=== PATIENT | female | born 1985 | race African-American/Black ===

== ENCOUNTER 2019-04-16 13:15 | Outpatient (CLI) | payer MEDICARE, OTHER ==
[~2019-04-16] VITALS: Ht 162.6 cm; Wt 121.4 kg
[2019-04-16 13:32] VITALS: BP 125/86; PULSE 90; RESP 18; Ht 162.6 cm; Wt 121.4 kg
[2019-04-16] MEDS ORDERED: MEPERIDINE 50 MG INJ IM ONE (15:00)
[2019-04-16] MEDS ORDERED: HYDROCODONE/APAP (5/325) TAB PO ONE (15:30)
--- NOTE | 2019-04-16 18:08 | TRIAGE ---
OB Triage Datetime Report Generated by CPN: 04/16/2019 18:07 Datetime: 04/16/2019 17:08 Maternal Assessment Level of Consciousness: Keenly Alert, Responsive DTR's/Clonus: DTRs 2+ Headache: Denies Blurred Vision: No Nausea/Vomiting: Denies RUQ Epigastric Pain: Denies Facial Edema: None Labor Evaluation Frequency: none Monitor Mode: External Quality: Mild Pattern: Normal: <= 5 Contractions in 10 Minutes Resting Tone [place]: Relaxed Heart Rate FHR Baseline Rate: 135 Monitor Mode: External US FHR Baseline Changes: No Baseline Change Variability: Moderate 6-25 bpm Accelerations: 15X15 Decelerations: None Category: Category I Pain Assessment Pain Scale: 4 Pain Presence: Chronic Pain Type: Pressure Pain Location: Left Leg Pain Goal: 3 Datetime: 04/16/2019 16:00 Maternal Assessment Level of Consciousness: Keenly Alert, Responsive DTR's/Clonus: DTRs 2+ Headache: Denies Blurred Vision: No Nausea/Vomiting: Denies RUQ Epigastric Pain: Denies Facial Edema: None Labor Evaluation Frequency: none Pattern: Normal: <= 5 Contractions in 10 Minutes Resting Tone [place]: Relaxed Heart Rate FHR Baseline Rate: 140 Monitor Mode: External US FHR Baseline Changes: No Baseline Change Variability: Moderate 6-25 bpm Accelerations: 15X15 Decelerations: None Category: Category I Pain Assessment Pain Scale: 6 Pain Presence: Chronic Pain Type: Pressure Pain Location: Left Leg Pain Goal: 2 Vaginal Exam Membrane Status: Intact Datetime: 04/16/2019 15:49 FHR Baseline Changes: Return to Previous Baseline Datetime: 04/16/2019 13:54 Stage of : OB Triage Datetime: 04/16/2019 13:28 Stage of : OB Triage Maternal Assessment Level of Consciousness: Keenly Alert, Responsive DTR's/Clonus: DTRs 2+; No Clonus Headache: Denies Blurred Vision: No Respiratory Effort: Unlabored; Regular Rhythm; Equal Expansion Breath Sounds, Left: Clear and Equal Breath Sounds, Right: Clear and Equal Nausea/Vomiting: Denies RUQ Epigastric Pain: Denies Lower Extremities Edema: Bilateral Lower Extremities Degree: 2+ Upper Extremities Edema: None Degree: None Facial Edema: None Temperature Route: Oral Fall Risk Assessment History of Falling: (0) No Secondary Diagnosis: (0) No Ambulatory Aid: (0) Bedrest/Nurse Assist IV Therapy: (0) No Gait: (0) Normal/Bedrest/Immobile Mental Status: (0) Oriented to Own Ability Fall Score: 0 Fall Risk Score Definition: No Risk: No action required Monitor Mode: External Heart Rate FHR Baseline Rate: 140 Monitor Mode: External US Pain Assessment Pain Scale: 9 Pain Presence: Constant Pain Type: Cramping; Dull; Sharp Pain Location: Abdomen; Back; Sacrum Datetime: 04/16/2019 13:27 EGA: 32.1 Datetime: 04/16/2019 13:23 Time of Arrival: 04/16/2019 13:24 Arrived By: Wheelchair Arrived From: Home Chief Complaint: pain, contractions, unable to sleep since 04/06, has been falling while walking Movement: Present Contractions: Irregular Rupture of Membranes: Denies Vaginal Discharge: Denies Recent Sexual Intercouse: Denies Abdominal Trauma: Fall Patient Complaints: Contractions; Cramping; Back Pain Additional Patient Complaints: sent from Dr office for evaluationto rule out fracture or dislocati on and possibly have orthopedic or physical therapy evaluation Time Provider Notified: 04/16/2019 13:45 Provider Notified: Dr Camp Initial Plan: efm/ u/s
--- NOTE | 2019-04-16 21:43 | PN ---
Triage Information Date/Time April 16, 2019 Reason for visit: Patient presented with complaint of contractions as well as pain in the left hip with walking. She reports had a history of musculoskeletal problem and need to use walker to walk. She reports fall episodes. Weeks of Gestation 32 weeks and 1 day /Para 9 para 4 Diabetes: none Hypertention: none Additional information 34-year-old 9 para 4 with IUP at 32 weeks and 1 day with a history of arthritis and joint problem/orthopedic issue in the left hip, with chronic left hip pain that has been managed by pain management she presented to the hospital with complaint of, fall this morning 12 hours prior to present to the hospital. She reports that she did not landed on her abdomen and landed on her side. She reports that she has been using walker for walking around. She lives in the skilled nursing. She had been receiving pain medication for chronic arthritis and joint pain. Reports due to she was not given pain medication. She reports she has trouble falling asleep due to pain. She reports she is not able to move around in her skilled nursing which does not have any hand-held and has a stairs. 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 When she presented complaint of abdominal pain and contractions as well but reported her pain in the hip is so severe that she cannot walk around. Patient denies any leaking of fluid, vaginal bleeding or decreased movement. Patient requested only [employer] for pain control Objective Vital Signs Date Temp Pulse Resp B/P (MAP) Pulse Ox O2 O2 Flow FiO2 Time Delivery Rate 04/16/19 98.0 90 18 125/86 13:32 (99) Heart Rate: 130's Heart Rate Comments Category 1 and appropriate for gestational age Contractions: 6-10 Minutes Apart Exam Appearance: She is morbidly obese, when I saw the patient was not at all in any acute distress and that was after she received a [employer]. Abdomen: Soft, gravid, fundal height appears to correlate with gestational age Patient could move her extremities without any limitation as well as her left hip which she explained that she has trouble putting her weight on. She refused to ambulate or get out of the bed. BPP: 06/09 Results/Medications Results 24 hrs Laboratory Tests Test 04/16/19 14:00 Urine Color YELLOW Urine Clarity SLIGHTLY CLOUDY A Urine pH 6.0 Urine Specific [place] 1.026 Urine Ketones TRACE A Urine Nitrite NEGATIVE Urine Bilirubin NEGATIVE Urine Urobilinogen 2+ H Urine Leukocyte Esterase NEGATIVE Urine Microscopic RBC 2 Urine Microscopic WBC 1 Urine Squamous Epithelial Cells FEW Urine Bacteria FEW A Urine Mucus FEW A Urine Hemoglobin NEGATIVE Urine Glucose NEGATIVE Urine Total Protein NEGATIVE Imaging Results PROCEDURE: CERVICAL LENGTH ULTRASOUND CLINICAL INDICATION: Contractions. TECHNIQUE: Trans-vaginal imaging of the cervical canal was performed utilizing hennessy-scale imaging. Sagittal and transverse images were obtained. Trans- abdominal images were also obtained. The images were reviewed on a PACS workstation. COMPARISON: None. FINDINGS: The cervix is closed with a length of 3.8 cm. There is a single live intrauterine . heart rate is 150 beats per minute. Position is cephalic and placenta is anterior, grade 2. There is no placenta previa. IMPRESSION: 1. Cervical length measures 3.8 cm. RPTAT: .Matt Alvarenga MD, Date Time PROCEDURE: US biophysical profile. CLINICAL INDICATION: Contractions. well-being. TECHNIQUE: Multiple sonographic images of the uterus were obtained. The images were reviewed on a PACS workstation. COMPARISON: No prior studies are available for comparison. FINDINGS: There is a single live intrauterine gestation. heart rate is 142 beats per minute. The position is cephalic. The placenta is anterior, grade II. The OLIMPIA is 16.5 cm. Breathing Movement: 2 Gross Body Movement: 2 Tone: 2 Qualitative Amniotic Fluid Volume: 2 TOTAL: 8 IMPRESSION: 1. Single viable intrauterine gestation. 2. Biophysical profile = 8. 3. OLIMPIA = 16.5 cm. RPTAT: .Matt Alvarenga MD, PROCEDURE: Bilateral lower extremity venous ultrasound. CLINICAL INDICATION: Pain and swelling TECHNIQUE: Multiple sonographic images of both lower extremity deep venous systems was obtained utilizing grayscale, color-flow, compressive sonography and doppler imaging with augmentation. The images were reviewed on a PACS workstation. COMPARISON: None. FINDINGS: The deep venous structures of the right lower extremity show good compressibility, spontaneous flow variability, and augmentation of forward flow on distal compression. The venous structures of the left lower extremity show good compressibility, spontaneous flow variability, and augmentation of forward flow on distal compression. No coincidental abnormalities were identified. IMPRESSION: 1. No sonographic evidence for deep venous thrombosis in either lower extremity. RPTAT:AAJJ Physician Inocencia Date Time Electronically viewed and signed by Physician Inocencia on 04/16/2019 17:16 Disposition: Discharge Assessment/Plan IUP at 32 weeks and 1 day No evidence of PPROM or labor No acute OB problem No evidence of abruption Per patient fall occurred more than 12 hours ago Patient does not have any clinical evidence of abruption Did not landed on her abdomen directly Chronic joint pain, with trouble walking Patient received a dose of [employer] and she felt comfortable. She denies any abdominal pain and did not feel any contraction. She will be discharged to emergency room for evaluation of her joint pain. labor precautions kick count discussed Questionable drug-seeking behavior due to choice of narcotic that she is requesting Patient verbalized understanding she transferred to ED for evaluation YEYO ARSHAD MD Apr 16, 2019 21:43
== END 2019-04-16 18:20 | disposition home or self-care (01) ==
LOC: OBT 13:15 → L-D 13:15 → OBT 18:20
PROVIDERS: ATTEND Specialist
DX: O62.9 Abnormality of forces of labor, unspecified (principal); O26.893 Other specified pregnancy related conditions, third trimester; M19.90 Unspecified osteoarthritis, unspecified site; O09.523 Supervision of elderly multigravida, third trimester
CPT/HCPCS: 76817; 76818; 81001; 81003; 93970; G0463

== ENCOUNTER 2019-04-16 18:17 | Emergency (ER) | payer MEDICARE, OTHER ==
[~2019-04-16] VITALS: Ht 162.6 cm; Wt 121.0 kg
[2019-04-16 18:25] VITALS: BP 116/66; PULSE 62; RESP 19; Ht 162.6 cm; Wt 121.0 kg
--- NOTE | 2019-04-16 18:49 | ERD ---
ER Documentation Chief Complaint Chief Complaint STATES FREQUENT FALLS, +PELVIC PAIN, LT LEG PAIN, NOT SLEEPING HPI Patient is a 34-year-old female who presents for leg pain and falls. She was seen by OB and was cleared from an OB standpoint as she is 32 weeks . She said that she was sent to the ER for pain. She reports that she has had falls and she does have a walker that she has been using. Upon review of old medical records this is the patient's first visit to the emergency department. However review of the emergency department information exchange system shows visits to 5 separate emergency departments for a total of 12 visits over the past 1 year. She says that her OB doctor is Dr. Pool. ROS All systems reviewed and are negative except as per history of present illness. Allergies Allergies: Coded Allergies: morphine (Verified Adverse Reaction, Intermediate, 04/16/19) hives PMhx/Soc Medical and Surgical Hx: pt denies Medical Hx FmHx Family History: No diabetes Physical Exam Vitals Vital Signs Date Temp Pulse Resp B/P (MAP) Pulse Ox O2 O2 Flow FiO2 Time Delivery Rate 04/16/19 98.3 62 19 116/66 96 18:25 (83) Physical Exam Const: No acute distress Head: Atraumatic Eyes: Normal Conjunctiva ENT: Normal External Ears, Nose and Mouth. Neck: Full range of motion. No meningismus. Resp: Clear to auscultation bilaterally Cardio: Regular rate and rhythm, no murmurs Abd: Soft, 32-week abdomen Skin: No petechiae or rashes Back: No midline or flank tenderness Ext: No cyanosis, or edema Neur: Awake and alert Procedures/MDM Patient is a 34-year-old female presents with left leg pain and falls. She is requesting pain medicine and sleep medicine. I told her that both of these medicines would not be good for her with a 32-week fetus and that I would not be prescribing these medications. She was not happy but I told her that this would not be good for her fetus. I do not believe that she requires further work-up or imaging studies in the emergency department. Outpatient imaging studies may be considered such as MRI but I do believe that most likely she would improve after delivery of the baby. This may be related to the position of the baby on the lumbar nerves. There also may be an element of pain seeking behavior based on the emergency department information exchange report showing multiple visits to various emergency departments. Departure Diagnosis: Primary Impression: Pain Condition: Fair Patient Instructions: Possible Causes of Low Back or Leg Pain Referrals: Your OB doctor Dr. Pool Additional Instructions: SPECIALIST: YOU HAVE A MEDICAL CONDITION WHICH REQUIRES YOU TO SEE A SPECIALIST WITHIN THE NEXT 1-2 DAYS. PLEASE FOLLOW UP WITH YOUR PRIMARY PHYSIC GM FOR REFFERAL.IF YOU DO NOT HAVE A PRIMARY CARE PHYSICIAN AND/OR YOU CAN NOT AFFORD TO SEE A PHYSICIAN THE FOLLOWING RESOURCES HAVE BEEN SUPPLIED TO YOU. IT IS YOUR RESPONSIBILITY TO BE SEEN BY THE SPECIALIST ROSETTA BURCIAGA MD Apr 16, 2019 18:49
== END 2019-04-16 19:00 | disposition home or self-care (01) ==
LOC: E/R 18:17
DX: O26.893 Other specified pregnancy related conditions, third trimester (principal); R10.2 Pelvic and perineal pain; O99.89 Other specified diseases and conditions complicating pregnancy, childbirth and the puerperium; M79.605 Pain in left leg; Z3A.32 32 weeks gestation of pregnancy
CPT/HCPCS: 99282

== ENCOUNTER 2019-05-14 18:38 | Outpatient (CLI) | payer MEDICARE, OTHER ==
[~2019-05-14] VITALS: Ht 165.1 cm; Wt 127.0 kg
[2019-05-14 18:44] VITALS: BP 120/70; PULSE 104; RESP 18; Ht 165.1 cm; Wt 127.0 kg
[2019-05-14] MEDS ORDERED: PREN-93 PO (18:48)
[2019-05-14] MEDS ORDERED: ACETAMINOPHEN 500 MG TAB PO STA (20:24)
--- NOTE | 2019-05-14 21:47 | TRIAGE ---
OB Triage Datetime Report Generated by CPN: 05/14/2019 21:47 Datetime: 05/14/2019 21:17 Labor Evaluation Frequency: X1 Monitor Mode: External Duration (sec)2399: 40 Quality: Mild Pattern: Normal: <= 5 Contractions in [address] [place]: Relaxed Heart Rate FHR Baseline Rate: 130 Monitor Mode: External US Variability: Moderate 6-25 bpm Accelerations: 15X15 Comments: LOSS OF CONTACT, EFM ADJUSTED Datetime: 05/14/2019 21:10 Pain Assessment Pain Scale: 5 Pain Presence: Constant Pain Type: Ache Pain Location: Abdomen; Back Pain Goal: 0 Pain Relief Measures: STATES UCS RESOLVED BUT FEELS CONSTANT PAIN/PRESSURE IN HER LOWER BACK 5/10 S [place] SHE FELL LAST MONTH. REPOSITIONED WITH PILLOWS FOR COMFORT Datetime: 05/14/2019 20:32 Comments: MULTIPLE ADJUSTMENTS MADE TO EFM, DIFFICULT TO MAINTAIN CONTINUOUS TRACING DUE TO FREQUEN T MOVEMENT. U/S TECH AT BEDSIDE, WILL ADJUST AFTER. PT NOW STATES SHE WILL ACCEPT TYLENOL Datetime: 05/14/2019 20:30 Labor Evaluation Frequency: x4 Monitor Mode: External Duration (sec)2399: 30-90 Quality: Mild Pattern: Normal: <= 5 Contractions in [address] [place]: Relaxed Heart Rate FHR Baseline Rate: 135 Monitor Mode: External US Variability: Moderate 6-25 bpm Accelerations: 15X15 Decelerations: Variable Category: Category II Datetime: 05/14/2019 19:30 Labor Evaluation Frequency: X1 Monitor Mode: External Duration (sec)2399: 100 Quality: Mild Pattern: Normal: <= 5 Contractions in [address] [place]: Relaxed Heart Rate FHR Baseline Rate: 135 Monitor Mode: External US Variability: Moderate 6-25 bpm Accelerations: 15X15 Decelerations: None Category: Category I Datetime: 05/14/2019 19:10 Assessment Type: Triage Maternal Assessment Level of Consciousness: Keenly Alert, Responsive DTR's/Clonus: DTRs 2+; No Clonus Headache: Denies Blurred Vision: No Respiratory Effort: Unlabored; Regular Rhythm; Equal Expansion Nausea/Vomiting: Denies RUQ Epigastric Pain: Denies Lower Extremities Edema: Bilateral Lower Extremities Degree: 1+ Upper Extremities Edema: None Degree: None Facial Edema: None Fall Risk Assessment History of Falling: (0) No Secondary Diagnosis: (0) No Ambulatory Aid: (0) Bedrest/Nurse Assist IV Therapy: (0) No Gait: (0) Normal/Bedrest/Immobile Mental Status: (0) Oriented to Own Ability Fall Score: 0 Fall Risk Score Definition: No Risk: No action required Comment: ASSUMED CARE OF PT Datetime: 05/14/2019 19:07 Time of Arrival: 05/14/2019 18:15 EGA: 36.1 Arrived By: Ambulatory Arrived From: Home Chief Complaint: ABD PAIN Movement: Present Contractions: Irregular Time Contractions Began: 05/14/2019 15:00 Contractions: 15-20 MIN Rupture of Membranes: Denies Vaginal Bleeding: None Vaginal Discharge: Denies Recent Sexual Intercouse: Denies Abdominal Trauma: Not Applicable Patient Complaints: Contractions Time Provider Notified: 05/14/2019 19:25 Provider Notified: LULU Initial Plan: NST, CALL MD FOR ORDERS Datetime: 05/14/2019 18:48 Maternal Assessment Level of Consciousness: Keenly Alert, Responsive DTR's/Clonus: DTRs 2+; No Clonus Headache: Denies Blurred Vision: No Respiratory Effort: Unlabored; Regular Rhythm; Equal Expansion Breath Sounds, Left: Clear and Equal Breath Sounds, Right: Clear and Equal Nausea/Vomiting: Denies RUQ Epigastric Pain: Denies Facial Edema: None Temperature Route: Axillary Fall Risk Assessment History of Falling: (0) No Secondary Diagnosis: (0) No Ambulatory Aid: (0) Bedrest/Nurse Assist IV Therapy: (0) No Gait: (0) Normal/Bedrest/Immobile Mental Status: (0) Oriented to Own Ability Fall Score: 0 Fall Risk Score Definition: No Risk: No action required Datetime: 05/14/2019 18:42 Maternal Assessment Level of Consciousness: Keenly Alert, Responsive DTR's/Clonus: DTRs 2+ Headache: Denies Blurred Vision: No Nausea/Vomiting: Denies RUQ Epigastric Pain: Denies Facial Edema: None Labor Evaluation Frequency: NONE Pattern: Normal: <= 5 Contractions in [address] [place]: Relaxed Heart Rate FHR Baseline Rate: 150 Monitor Mode: External US FHR Baseline Changes: No Baseline Change Variability: Moderate 6-25 bpm Accelerations: 15X15 Decelerations: None Category: Category I Pain Assessment Pain Scale: 6 Pain Presence: Intermittent Pain Type: Contraction Pain Location: Abdomen Pain Goal: 2 Vaginal Exam Membrane Status: Intact Datetime: 04/16/2019 18:03 Time of Arrival: 05/14/2019 18:15 EGA: 36.1 Arrived By: Ambulatory Arrived From: Home Chief Complaint: ABD PAIN Movement: Present Time Contractions Began: 05/14/2019 15:00 Rupture of Membranes: Denies Vaginal Bleeding: None Vaginal Discharge: Denies Recent Sexual Intercouse: Denies Abdominal Trauma: Not Applicable Patient Complaints: Contractions Provider Notified: DR DUQUE Initial Plan: EFM,CALL DR DUQUE Datetime: 04/16/2019 13:28 Fall Score: 0 Fall Risk Score Definition: No Risk: No action required Datetime: 04/16/2019 13:27 EGA: 32.1
--- NOTE | 2019-05-14 23:07 | PN ---
Triage Information Date/Time 05/14/19 Reason for visit: Abd/pelvic pain Weeks of Gestation 36w1d /Para A4 NSVDx1 C/S for oligohydramnios f/b x2 more c/s Diabetes: none Hypertention: none Additional information left knee meniscus tear multiple fall by using walker 04/06,04/12, and x2 more fall living in [facility] after lost job , kids are all scattered, has to use walker to go up stairs Objective Vital Signs Date Temp Pulse Resp B/P (MAP) Pulse Ox O2 O2 Flow FiO2 Time Delivery Rate 05/14/19 97.8 104 18 120/70 Room Air 18:44 (87) Heart Rate: 150's Heart Rate Comments CAT I Exam abdomen soft no uc for manual palpation for 15min Results/Medications Results 24 hrs Laboratory Tests Test 05/14/19 18:20 Urine Color YELLOW Urine Clarity CLEAR Urine pH 6.0 Urine Specific [place] 1.018 Urine Ketones NEGATIVE Urine Nitrite NEGATIVE Urine Bilirubin NEGATIVE Urine Urobilinogen NEGATIVE Urine Leukocyte Esterase NEGATIVE Urine Hemoglobin NEGATIVE Urine Glucose NEGATIVE Urine Total Protein NEGATIVE Medications tylenol 1000mg Imaging Results BPP 8/8 OLIMPIA 14.3 Vx Disposition: Discharge Assessment/Plan A IUP 36w1d S/P X3 c/s ligament pain NIL P discharge home f/u with her OB RTH prn with routine labor instructions JAYCE LAWSON MD May 14, 2019 23:07
== END 2019-05-14 21:35 | disposition home or self-care (01) ==
LOC: OBT 18:38 → L-D 18:40 → OBT 21:35
PROVIDERS: ATTEND Specialist
DX: O26.893 Other specified pregnancy related conditions, third trimester (principal); M25.562 Pain in left knee; O41.03X0 Oligohydramnios, third trimester, not applicable or unspecified; O34.219 Maternal care for unspecified type scar from previous cesarean delivery; O09.523 Supervision of elderly multigravida, third trimester; Z3A.36 36 weeks gestation of pregnancy
CPT/HCPCS: 76818; 81003; 87086; G0463

== ENCOUNTER 2019-05-18 20:36 | Inpatient (IN) | payer MEDICARE, OTHER ==
[~2019-05-18] VITALS: Ht 162.6 cm; Wt 125.7 kg
[~2019-05-18 20:36] MED LIST: PREN-93 PO
[2019-05-18 23:02] VITALS: Ht 162.6 cm; Wt 125.7 kg
[2019-05-18 23:05] VITALS: BP 93/70; PULSE 88; RESP 18
[2019-05-19] MEDS: HYDROCODONE/APAP (10/325) TAB PO PRN ×2 (01:41→06:16)
--- NOTE | 2019-05-19 02:47 | TRIAGE ---
OB Triage Datetime Report Generated by CPN: 05/19/2019 02:46 Datetime: 05/19/2019 01:40 Pain Assessment Pain Scale: 8 Pain Presence: Constant Pain Type: Ache Pain Location: Head Pain Goal: 5 Datetime: 05/18/2019 23:09 Time of Arrival: 05/18/2019 20:23 EGA: 36.5 Arrived By: Wheelchair Arrived From: Home Movement: Present Contractions: Denies/Absent Rupture of Membranes: Denies Vaginal Bleeding: None Vaginal Discharge: Denies Recent Sexual Intercouse: Denies Abdominal Trauma: Not Applicable Patient Complaints: Contractions Time Provider Notified: 05/19/2019 21:00 Provider Notified: YASHARPOUR Initial Plan: EFM, VE, LABS, ULTRASOUND Datetime: 05/14/2019 19:10 Fall Risk Assessment Fall Score: 0 Fall Risk Score Definition: No Risk: No action required Datetime: 05/14/2019 19:07 EGA: 36.1 Datetime: 05/14/2019 18:48 Fall Risk Assessment Fall Score: 0 Fall Risk Score Definition: No Risk: No action required Datetime: 04/16/2019 18:03 EGA: 36.1 Datetime: 04/16/2019 13:28 Fall Risk Assessment Fall Score: 0 Fall Risk Score Definition: No Risk: No action required Datetime: 04/16/2019 13:27 EGA: 32.1
[2019-05-19] MEDS ORDERED: LACTATED RINGER'S 1,000 ML IV SCH (02:55)
[2019-05-19] MEDS ORDERED: HYDROCODONE/APAP (10/325) TAB PO PRN (03:00)
--- NOTE | 2019-05-19 04:20 | TRIAGE ---
OB Triage Datetime Report Generated by CPN: 05/19/2019 04:20 Datetime: 05/19/2019 03:00 Comments: TURNED OFF, NEW ORDER FOR NST Q SHIFT ONLY Datetime: 05/19/2019 02:46 EGA: 36.5 Datetime: 05/19/2019 02:20 Frequency: 0 Monitor Mode: External Resting Tone [place]: Relaxed FHR Baseline Rate: 130 Monitor Mode: External US Variability: Moderate 6-25 bpm Accelerations: 15X15 Decelerations: None Category: Category I Datetime: 05/19/2019 01:20 Frequency: 0 Monitor Mode: External Resting Tone [place]: Relaxed FHR Baseline Rate: 130 Monitor Mode: External US Variability: Moderate 6-25 bpm Accelerations: 15X15 Decelerations: None Datetime: 05/19/2019 00:20 Frequency: 0 Monitor Mode: External Resting Tone [place]: Relaxed Comments: POOR TRACING Datetime: 05/18/2019 23:20 Frequency: 0 Monitor Mode: External Resting Tone [place]: Relaxed FHR Baseline Rate: 140 Monitor Mode: External US Variability: Moderate 6-25 bpm Accelerations: 15X15 Comments: LOSS OF CONTACT, PT LAYING ON LEFT SIDE, EFM ADJUSTED Datetime: 05/18/2019 23:09 EGA: 36.5 Datetime: 05/18/2019 22:42 Assessment Type: Triage Level of Consciousness: Keenly Alert, Responsive DTR's/Clonus: DTRs 2+; No Clonus Headache: Denies Blurred Vision: No Respiratory Effort: Unlabored; Regular Rhythm; Equal Expansion Breath Sounds, Left: Clear and Equal Breath Sounds, Right: Clear and Equal Nausea/Vomiting: Denies RUQ Epigastric Pain: Denies Facial Edema: None History of Falling: (0) No Secondary Diagnosis: (0) No Ambulatory Aid: (0) Bedrest/Nurse Assist IV Therapy: (0) No Gait: (0) Normal/Bedrest/Immobile Mental Status: (0) Oriented to Own Ability Fall Score: 0 Fall Risk Score Definition: No Risk: No action required Pain Scale: 8 Pain Presence: Constant Pain Type: Ache Pain Location: Head Pain Goal: 5
[2019-05-19] MEDS ORDERED: PRENATAL VITAMIN PO SCH (09:00)
--- NOTE | 2019-05-19 09:45 | HP ---
Date/Time of Note Date/Time of Note DATE: 05/19/19 TIME: 09:39 OB - History Hx of Present Free Text/Dictation 05/19/2019 : 9 Para: 4 Other Concerns: 34-year-old G9, P4 with IUP at 37 weeks and 5 days and care with Dr. joanna berg at [facility], was sent to the hospital for rule out PIH due to 3 days headache as well as blurred vision and elevated blood pressure in the range of 140s over 90s. Patient denies any history of migraine headache. She reports photophobia. Patient reports has pressure feeling sensation behind her eyes. She denies any history of sinus headache. She denies any congestion. Patient denies any leaking of fluid, vaginal bleeding decreased movement or contractions. Patient reports nonstop having headache for the last 3 days with blurry vision. She denies any epigastric pain or right upper quadrant pain. Patient reports has been taking Tylenol and it does not help with her he adache. records reviewed. Elevated blood pressure in the range of 140s over 90sx2 noted. Patient's blood pressure during monitoring in triage within normal limits. PIH panels were normal. She continued to have headache and blurred vision. She was given Dola per her request since reported that Tylenol does not help with her headache. Her headache moderately improved however was a st ill symptomatic. Patient was admitted to labor and delivery for monitoring blood pressure closely. Past Family/Social History * Past Medical, Surgical, Family and Obstetric Histories reviewed from chart. OB Admission Exam Vital Signs Vital Signs Vital Signs Date Temp Pulse Resp B/P (MAP) Pulse Ox O2 O2 Flow FiO2 Time Delivery Rate 05/18/19 98.0 88 18 93/70 (78) Room Air 23:05 Physical Exam HEENT: WNL Heart: Rhythm Normal Lungs: Clear Abdomen: WNL Cervical Dilatation: None Effacement: 0% Heart Rate: 130's Accelerations: Accelerations Present Decelerations: No Decelerations Contractions on Admission: >10 Minutes Apart Intensity: Mild Last 72 hourBlood Glucose PROCEDURE: OB ultrasound for biophysical profile CLINICAL INDICATION: , pain. TECHNIQUE: Multiple sonographic images of the pelvis were obtained. Transabdominal view of the gravid uterus are available for review. The images were reviewed on a PACS workstation. COMPARISON: 05/14/2019 FINDINGS: breathing movement = 2/2 tone = 2/2 motion = 2/2 Amniotic fluid = 2/2 OLIMPIA = 14.8 cm Single live intrauterine in cephalic presentation with cardiac activity (144 bpm). Anterior placenta, grade 1-2. IMPRESSION: Single live intrauterine gestation. Biophysical profile = 06/09. OLIMPIA = 14.8 cm. RPTAT: HTAR Last 72 hours Lab Results CBC & BMP 05/18/19 23:07 Liver Function Test 05/18/19 23:07 Alanine Aminotransferase (ALT/SGPT) 10 L Albumin 3.3 Alkaline Phosphatase 131 H Aspartate Amino Transf (AST/SGOT) 18 Direct Bilirubin 0.00 Total Protein 6.8 OB Assessment/Plan Other Assessment: IUP at 37 weeks and 5 days Headache, blurred vision. Photophobia. . PIH panels are normal. Blood pressure during monitoring normal. Patient will be admitted to labor and delivery for close monitoring and observation She received Dola that moderately improved headache however still continued to be symptomatic. Labs are normal blood pressures during observation within normal limits. We will closely monitor the blood pressures in the symptoms if any evidence of elevated blood pressure, consider delivery Histroy of Prior C/S x 3. Plan for repeat C/S Plan of care discussed with patient and RN. I covered for this patient overnight when arrived,. Dr Hameed took over the care in am and assessed the patient, Patient asymptomatic now, Plan for Delivery via section in am YEYO ARSHAD MD May 19, 2019 09:44
--- NOTE | 2019-05-19 10:30 | QN ---
Documentation Comment I spoke to patient while ore charger in the room earlier today. I explained the situation and we all agreed to proceed with R C/S and BTL in am when she becomes 37 weeks. we all agreed that she will stay in hospital until then. Later on patient was dressed and decided to go home. she lives in a hotel and has social issues. I do not feel comfortable to discharge the patient. I explained the risks of PIH including maternal and . she signed out AM THOMAS WALKER MD May 19, 2019 10:30
== END 2019-05-19 10:17 | disposition left against medical advice (07) | DRG 833 ==
LOC: OBT 20:36 → L-D 20:38 → OBT 05-19 02:35 → L-D 05-19 02:35
PROVIDERS: ADMIT Specialist; ATTEND Specialist
DX: O13.3 Gestational [pregnancy-induced] hypertension without significant proteinuria, third trimester (principal); Z3A.37 37 weeks gestation of pregnancy; Z60.8 Other problems related to social environment
CPT/HCPCS: 76818; 80053; 81001; 81003; 84560; 85025; 85384; 85610; 85730; G0463; J7120

== ENCOUNTER 2019-05-19 14:22 | Inpatient (IN) | payer MEDICARE, OTHER ==
[~2019-05-19] VITALS: Ht 162.6 cm; Wt 125.7 kg
[2019-05-19 16:47] VITALS: Ht 162.6 cm; Wt 125.7 kg
[2019-05-19 16:49] VITALS: BP 156/79; PULSE 86; RESP 20
[2019-05-19] MEDS: LACTATED RINGER'S 1,000 ML IV SCH (19:00)
[2019-05-20] MEDS: LACTATED RINGER'S 1,000 ML IV SCH (00:54)
[2019-05-20] MEDS ORDERED: LACTATED RINGER'S 1,000 ML IV SCH ×2 (04:49→07:57)
[2019-05-20] MEDS ORDERED: CARBOPROST 250 MCG INJ IM PRN (05:00)
[2019-05-20] MEDS ORDERED: OXYTOCIN 30 UNITS/LR 500 ML IV PRN (05:00)
[2019-05-20] MEDS ORDERED: MISOPROSTOL 200 MCG TAB PR PRN ×2 (05:00→08:00)
[2019-05-20] MEDS ORDERED: CEFAZOLIN 3 GM in DEXTROSE 5% 100 ML IV ONE (05:00)
[2019-05-20] MEDS ORDERED: METHYLERGONOVINE 0.2 MG INJ IM PRN (05:00)
[2019-05-20] MEDS ORDERED: CEFAZOLIN 2 GM/50 ML (PMX) 50 ML IVPB ONE (05:30)
[2019-05-20] MEDS ORDERED: morphine SULFATE/PF (10 MG/10 ML) INJ ONE (07:19)
[2019-05-20] MEDS ORDERED: ONDANSETRON 4 MG INJ ONE (07:19)
[2019-05-20] MEDS ORDERED: METOCLOPRAMIDE 10 MG INJ ONE (07:19)
[2019-05-20] MEDS ORDERED: KETOROLAC 30 MG INJ ONE (07:19)
--- NOTE | 2019-05-20 07:32 | PREAC ---
Date/Time of Note Date/Time of Note DATE: 05/20/19 TIME: 07:30 Anesthesia Eval and Record Evaluation Time Pre-Procedure Interview DATE: 05/20/19 TIME: 07:30 Age 34 Sex female NPO: 8 hrs Preoperative diagnosis repeat c section Planned procedure c section BTL Past Medical History Past Medical History: Includes GI: Morbid obesity Surgery & Anesthesia Issues No known issue Meds Anticoagulation: No Beta Talat within 24 hr: No Reason Beta Talat not given: Pt. not on B-Talat Reported Medications Vit No.124/Iron/FA ( Vitamin Tablet) 1 Each Tablet, 1 EACH PO, TAB 05/14/19 Current Medications Lactated Ringer's 1,000 ml @ 125 mls/hr Q8H IV ; Start 05/19/19 at 16:54 Lactated Ringer's 1,000 ml @ 125 mls/hr Q8H IV ; Start 05/20/19 at 04:49 Oxytocin/Lactated Ringer's 500 ml @ 125 mls/hr POST IV ; Start 05/20/19 at 05:00 Oxytocin/Lactated Ringer's 500 ml @ 0 mls/hr ONCE PRN IV .VAGINAL BLEEDING; Start 05/20/19 at 05:00 Methylergonovine Maleate (Methergine) 0.2 mg ONCE PRN IM .VAGINAL BLEEDING; Start 05/20/19 at 05:00 Carboprost Tromethamine (Hemabate) 250 mcg ONCE PRN IM .VAGINAL BLEEDING; Start 05/20/19 at 05:00 Misoprostol (Cytotec) 1,000 mcg ONCE PRN AR .VAGINAL BLEEDING; Start 05/20/19 at 05:00 Meds reviewed: Yes Allergies Coded Allergies: morphine (Verified Adverse Reaction, Intermediate, 05/18/19) hives Allergies Reviewed: Yes Labs/Studies Labs Reviewed: Reviewed by anesthesiologist Blood Bank Test 05/19/19 17:21 Antibody Screen NEGATIVE Blood Type O POSITIVE test: Positive Studies: ECG (n/a), CXR (n/a) Pre-procedure Exam Last vitals Vital Signs Date Temp Pulse Resp B/P (MAP) Pulse Ox O2 O2 Flow FiO2 Time Delivery Rate 05/19/19 98.2 86 20 156/79 Room Air 16:49 (104) Airway: Adequate mouth opening Mallampati: Mallampati I Teeth: Normal Lung: Normal Heart: Normal ASA Physical Status ASA physical status: 3 Emergency: None Planned Anesthetic General/MAC: ETT Neuraxial: Spinal Planned Pain Management Sub-arachniod narcotics Pre-operative Attestations Prior to commencing anesthesia and surgery, the patient was re-evaluated, there was verification of: *The patient's identity *The results of appropriate recent lab work and preoperative vital signs *The above evaluation not changing prior to induction *Anesthetic plan, risk benefits, alternative and complications discussed with patient/family; questions answered; patient/family understands, accepts and wishes to proceed. EVIE MALLORY MD May 20, 2019 07:32
[2019-05-20] MEDS ORDERED: DIPHENHYDRAMINE 50 MG INJ ONE (07:48)
--- NOTE | 2019-05-20 07:55 | HP ---
Date/Time of Note Date/Time of Note DATE: 05/20/19 TIME: 07:51 OB - History Hx of Present Free Text/Dictation 34-year-old 9 para 4 4 with due date of June 10, 2019 with at 37 weeks she is referred by an [facility] clinic due to elevated blood pressure. She reports intermittent headaches and visual changes. She denies right upper quadrant pain. Her PIH labs are normal. She has labile blood press ures. Most of her blood pressures are normal. She has some blood pressures in 140s. She desires to have repeat delivery and Permanent sterilization. I discussed with the patient the risks, benefits, indications, and alternatives of procedure including but not limited to risks of infection, bleeding, damage to other organs, bowel, bladder, hernia formation, scar formation, possibility of blood transfusion, possible need for emergency hysterectomy, as well as the fact that tubal ligation may fail and there is 1 to 2% risk of failure over lifetime of tubal ligations and the fact that tubal ligation is permanent and irreversible. She was allowed to ask questions. All her questions were answered. Informed consent has been obtained. Care: Good Care Ultrasounds: Normal mid trimester US Obstetrical Complications: Pre-eclampsia Medical Complications: Psychiatric, Other (Schizophrenia) Past Family/Social History * Past Medical, Surgical, Family and Obstetric Histories reviewed from chart. OB Admission Exam Vital Signs Vital Signs Vital Signs Date Temp Pulse Resp B/P (MAP) Pulse Ox O2 O2 Flow FiO2 Time Delivery Rate 05/19/19 98.2 86 20 156/79 Room Air 16:49 (104) Physical Exam HEENT: WNL Heart: Rhythm Normal Lungs: Clear, Equal Abdomen: WNL Extremities: Normal Reflexes: Normal OB Assessment/Plan Other Assessment: at 37 weeks. History of previous delivery. Desires repeat delivery. These are his permanent sterilization. Obesity. Preeclampsia. Other plan: Repeat delivery. Bilateral salpingectomies. THOMAS JEREZ MD May 20, 2019 07:55
[2019-05-20] MEDS ORDERED: NA PHOSPHATE/BIPHOS 133 ML ENEMA PR PRN (08:00)
[2019-05-20] MEDS ORDERED: CITRIC ACID/NA CITRATE 30 ML CUP PO ONE (08:00)
[2019-05-20] MEDS ORDERED: EPHEDrine 25 MG/5 ML SYG ONE (08:11)
--- NOTE | 2019-05-20 08:58 | OPR ---
Date/Time of Note Date/Time of Note DATE: 05/20/19 TIME: 08:55 Operative Report Procedure Date: May 20, 2019 Preoperative Diagnosis at 37 weeks History of previous delivery Desires repeat delivery Desires permanent sterilization Preeclampsia Obesity Postoperative Diagnosis Same Operation/Procedure Performed Repeat delivery Bilateral salpingectomies Surgeon Karina Hameed MD Anthropology Professor Jael Villa MD Anesthesia Type: spinal Estimated Blood Loss: other (700 mL) Transfusion none Specimen Segments of both tubes Grafts/Implants none Tubes/Drains Clement catheter Complications none Pt Condition Post Procedure: stable Disposition: PACU Procedure Description DATE OF OPERATION: The risks, benefits, indications, alternatives of procedure including, but not limited to risk of infection, bleeding, damage to other organs, bowel, bladder, hernia formation, scar formation, possibility of blood transfusions, the risks of tubal ligation such as failure and future pregnancies were discussed with the patient. The fact that BTL is permanent and irreversible also discussed with patient. She was allowed to ask questions. All her questions were answered. Informed consent was obtained. DESCRIPTION OF PROCEDURE: She was taken to the operating room. Spinal anesthesia was induced. She was prepped and draped in the usual sterile fashion. Surgical time out one. Anesthesia was tested to be adequate. With permission from anesthesiologist, a knife was used to make a Pfannenstiel skin incision. The incision was taken down in layers. The fascia was cut, undermined and from the underlying muscle using sharp and blunt dissection. All the bleeders were cauterized. Peritoneum was entered bluntly. A low transverse incision was developed over the uterus. Amniotic fluid was clear and adequate. A viable infant in vertex presentation was delivered without any difficulty. The cord was clamped and cut, handed to awaiting team. Placenta was then delivered. Uterus was exteriorized, wrapped around a moist lap. Inside uterus was cleaned using a dry lap. All residual membranes were removed. The uterine incision was then closed using #1 Monocryl in 2 layers. A 5 cm distal end of the right tube was ligated 3 times using 0 plain tie and the ligated portion was cut, sent to pathology. Same procedure was done on the contralateral side. The uterus was inserted back inside the abdominal cavity. Irrigation was done carefully. Careful evaluation of the uterine incision revealed no further bleeding. The tubal ligation sites were evaluated carefully. There was no bleeding. The peritoneum and rectus muscles and fascia were evaluated. All bleeders cauterized. Peritoneum was closed using 2-0 Monocryl. At this time, the count was correct. Rectus muscle was reapproximated using 2-0 Monocryl. Rectus fascia was closed using #1 Vicryl. Subcutaneous tissue was cleaned and irrigated. All bleeders cauterized and the skin closed using 4-0 Monocryl. All counts correct. KARINA HAMEED MD May 20, 2019 08:58
[2019-05-20] MEDS ORDERED: HYDROmorphONE 1 MG/5 ML IV SYRINGE IV PRN ×3 (09:00)
[2019-05-20] MEDS ORDERED: KETOROLAC 30 MG INJ IV PRN (09:00)
[2019-05-20] MEDS ORDERED: NALOXONE (0.4 MG/ML) INJ IV PRN (09:00)
[2019-05-20] MEDS ORDERED: HYDROmorphONE 0.5 MG/0.5 ML SYG IV PRN ×2 (09:00)
[2019-05-20] MEDS ORDERED: HYDROmorphONE 1 MG/ML SYG IV PRN (09:00)
[2019-05-20] MEDS ORDERED: FENTAnyl 50 MCG/ML VIAL IV PRN ×3 (09:00)
[2019-05-20] MEDS ORDERED: DIPHENHYDRAMINE 50 MG INJ IV PRN ×2 (09:00)
[2019-05-20] MEDS ORDERED: ONDANSETRON 4 MG INJ IV PRN (09:00)
[2019-05-20] MEDS: OXYTOCIN 30 UNITS/LR 500 ML IV SCH ×2 (09:58→12:24)
[2019-05-20 12:15] VITALS: BP 96/54; PULSE 53; RESP 18
[2019-05-20] MEDS: SENNA/DOCUSATE NA (8.6MG/50MG) TAB PO SCH ×2 (12:20→20:30)
[2019-05-20 12:45] VITALS: BP 99/47; PULSE 64; RESP 18
[2019-05-20] MEDS: KETOROLAC 30 MG INJ IV PRN ×2 (15:45→22:42)
[2019-05-20] MEDS: LANOLIN HPA 1 PKT TOP PRN ×2 (15:46→20:31)
[2019-05-20 16:00] VITALS: BP 114/87; PULSE 73; RESP 18
[2019-05-20 20:00] VITALS: BP 105/57; PULSE 88; RESP 19
[2019-05-20] MEDS: ONDANSETRON 4 MG INJ IV PRN (20:45)
[2019-05-21] VITALS: BP 107/65; PULSE 82; RESP 18
--- NOTE | 2019-05-21 03:39 | PAC ---
Date/Time of Note Date/Time of Note DATE: 05/21/19 TIME: 03:38 Post-Anesthesia Notes Post-Anesthesia Note Last documented vital signs Vital Signs Date Temp Pulse Resp B/P (MAP) Pulse Ox O2 O2 Flow FiO2 Time Delivery Rate 05/21/19 98.0 82 18 107/65 96 Room Air 00:00 (79) Activity: WNL Respiratory function: WNL Cardiovascular function: WNL Mental status: Baseline Pain reasonably controlled: Yes Hydration appropriate: Yes Nausea/Vomiting absent: No EVIE MALLORY MD May 21, 2019 03:39
--- NOTE | 2019-05-21 03:40 | OPPN ---
Date/Time of Note Date/Time of Note DATE: 05/21/19 TIME: 03:39 Anesthesia Follow up Anesthesia Follow up Last documented vital signs Vital Signs Date Temp Pulse Resp B/P (MAP) Pulse Ox O2 O2 Flow FiO2 Time Delivery Rate 05/21/19 98.0 82 18 107/65 96 Room Air 00:00 (79) Respiratory function: WNL Cardiovascular function: WNL Comments A 34 year old s/p spinal duramorph for post op pain pod#1 is doing well. No pain, itching, N/V, neural deficit, headache. EVIE MALLORY MD May 21, 2019 03:40
[2019-05-21 04:00] VITALS: BP 109/55; PULSE 76; RESP 18
[2019-05-21] MEDS: ONDANSETRON 4 MG INJ IV PRN (04:26)
[2019-05-21] MEDS: KETOROLAC 30 MG INJ IV PRN (07:07)
[2019-05-21 08:00] VITALS: BP 124/65; PULSE 70; RESP 18
[2019-05-21] MEDS: SENNA/DOCUSATE NA (8.6MG/50MG) TAB PO SCH ×3 (08:48→21:00)
[2019-05-21] MEDS: OXYCODONE/ACETAMINOPHEN (5/325) TAB PO PRN ×3 (08:48→20:04)
[2019-05-21] MEDS: IBUPROFEN 600 MG TAB PO SCH ×2 (12:00→18:00)
--- NOTE | 2019-05-21 15:56 | QN ---
Documentation Comment Postop day #1 Status post repeat Patient stable and afebrile Positive flatus and voiding and tolerating regular diet and ambulating Vital signs stable VS - Last 72 Hours, by Label Date Temp Pulse Resp B/P (MAP) Pulse Ox O2 O2 Flow FiO2 Time Delivery Rate 05/21/19 98.8 70 18 124/65 96 Room Air 08:00 (84) 05/21/19 98.5 76 18 109/55 97 Room Air 04:00 (73) 05/21/19 98.0 82 18 107/65 96 Room Air 00:00 (79) 05/20/19 97.7 88 19 105/57 96 Room Air 20:00 (73) 05/20/19 98.3 73 18 114/87 95 Room Air 16:00 (96) 05/20/19 97.8 64 18 99/47 (64) 96 Room Air 12:45 05/20/19 97.8 53 18 96/54 (68) 96 Room Air 12:15 05/19/19 98.2 86 20 156/79 Room Air 16:49 (104) Hematology - 72 Hrs Test 05/21/19 04:25 Hematocrit 31.0 % (37.0-47.0) L Hemoglobin 10.2 g/dl (12.0-16.0) L Mean Corpuscular Hemoglobin 30.4 pg (29.0-33.0) Mean Corpuscular Hemoglobin Concent 32.9 g/dl (32.0-37.0) Mean Corpuscular Volume 92.5 fl (82.0-101.0) Mean Platelet Volume 12.0 fl (7.4-10.4) H Platelet Count 171 10^3/UL (140-415) Red Blood Count 3.35 10^6/ul (4.20-5.40) L Red Cell Distribution Width 12.6 % (11.5-14.5) White Blood Count 12.3 10^3/ul (4.8-10.8) #H Abdomen soft, fundus firm Incision clean,dry,intact Extremities nontender Assessment and plan Patient stable and doing well Encouraged to ambulate Continue with routine postop care ZAHRAA ORELLANA MD May 21, 2019 15:56
[2019-05-21 16:00] VITALS: BP 116/59; PULSE 74; RESP 18
[2019-05-21 20:00] VITALS: BP 143/81; PULSE 77; RESP 19
[2019-05-21 21:00] VITALS: BP 118/70; PULSE 74; RESP 19
[2019-05-22] MEDS: OXYCODONE/ACETAMINOPHEN (5/325) TAB PO PRN ×3 (00:27→18:02)
[2019-05-22 04:10] VITALS: BP 120/62; RESP 18
[2019-05-22] MEDS: IBUPROFEN 600 MG TAB PO SCH ×5 (06:03→23:29)
[2019-05-22 08:30] VITALS: BP 142/71; PULSE 73; RESP 18
[2019-05-22] MEDS: SENNA/DOCUSATE NA (8.6MG/50MG) TAB PO SCH ×2 (08:38→21:00)
--- NOTE | 2019-05-22 13:25 | QN ---
Documentation Comment s/p c/s Subjective: no complaint Objective: Afebrile, VSS NAD A&O Abdomen: soft, appropriate tender Incision: no sign of bleeding/infection mild lochia Extremity: 1+ edema bilaterally Assessment: S/p C/S and bilateral salpingectomies. Postop day #2. Recovering Well Plan: current care THOMAS JEREZ MD May 22, 2019 13:25
--- NOTE | 2019-05-22 13:43 | DS ---
Date/Time of Note Date/Time of Note DATE: 05/22/19 TIME: 13:41 Obstetrical Discharge Record Final Diagnosis Final Diagnosis: Term delivered Other Final Diagnosis Patient on 37 weeks of with minor elevations of her blood pressure and some neurologic symptoms of headaches and visual changes was admitted for repeat delivery and bilateral salpingectomies postoperative care her vital signs are stable. She denies headaches visual changes or right upper quadrant. She had a bowel movement. She reports good pain control on oral pain medications. She is ambulating well. She is tolerating regular diet. Vaginal Delivery Obstetrical Delivery: Bilateral Tubal Ligation Section Section: Repeat Complications Augmentation: No Induction: No Rupture of Membranes: No Condition on Discharge Physical Assessment Voiding: Yes Bowel Movement: Yes Breast: Soft, non-tender, Filling Fundus: Firm Abdomen and Incision: Obese soft appropriate tenderness. Incision is clean dry without any sign of infection. Calf Tenderness: No Patient Condition: Good THOMAS JEREZ MD May 22, 2019 13:43
[2019-05-22 20:00] VITALS: BP 140/80; PULSE 69; RESP 18
[2019-05-22] MEDS: ENOXAPARIN 40 MG/0.4 ML SYG SC SCH (22:59)
[2019-05-23] MEDS: OXYCODONE/ACETAMINOPHEN (5/325) TAB PO PRN (00:25)
[2019-05-23 03:39] VITALS: BP 139/77; PULSE 72; RESP 18
[2019-05-23] MEDS: IBUPROFEN 600 MG TAB PO SCH ×2 (06:06→12:00)
[2019-05-23 08:00] VITALS: BP 145/69; PULSE 72; RESP 16
[2019-05-23] MEDS: SENNA/DOCUSATE NA (8.6MG/50MG) TAB PO SCH (09:00)
[2019-05-23] MEDS ORDERED: DIPHTH/TET/ACEL PERTUSS (ADULT) 0.5 ML VIAL IM* ONE (09:00)
[2019-05-23] MEDS ORDERED: MEASLES,MUMPS,RUBELLA VACCINE INJ SC* ONE (09:00)
[2019-05-23] MEDS: ENOXAPARIN 40 MG/0.4 ML SYG SC SCH (10:54)
--- NOTE | 2019-05-24 12:23 | DELSUM ---
Delivery Summary A-C Datetime Report Generated by CPN: 05/24/2019 12:22 DELIVERY PERSONNEL [employer] Technician: Raven Lebron MATERNAL INFORMATION Delivery Anesthesia: Spinal Medications in Delivery: SEE ANESTHESIA RECORDS Delivery QBL (ml): 700 Placenta Cultured: No Maternal Complications: Other RN Comments: hx of mental illness, high b/p w , living in [facility], [facility], LABOR SUMMARY EDC: 06/10/2019 00:00 No. Babies in Womb: 1 Attempted: No Labor Anesthesia: None LABOR INFORMATION Reason for Induction: Not Applicable Group B Beta Strep: Done, Result Unknown Antibiotics # of Doses: 1 Antibiotics Time of Last Dose: 05/20/2019 08:04 Steroids Given: None Reason Steroids Not Administered: Not Applicable MEMBRANES Membranes Rupture Method: Artificial Rupture of Membranes: 05/20/2019 08:21 Length of Rupture (hr): 0.02 Amniotic Fluid Color: Clear Amniotic Fluid Amount: Moderate Amniotic Fluid Odor: None STAGES OF LABOR Stage 3 hr: 0 Stage 3 min: 3 CSECTION DELIVERY Primary Indication: Repeat Elective Secondary Indication: Repeat Elective CSection Urgency: Elective CSection Incidence: Repeat Labor: No Labor Elective: Elective CSection Incision: Lower Uterine Transverse Sterilization Procedure: [place] BABY A INFORMATION Infant Delivery Date/Time: 05/20/2019 08:22 Method of Delivery: Born in Route : No : N/A Forceps: N/A Vacuum Extraction: N/A Shoulder Dystocia : No SHOULDER DYSTOCIA BABY A Delivery Date/Time: 05/20/2019 08:22 PRESENTATION/POSITION BABY A Presentation: Cephalic Cephalic Presentation: N/A Breech Presentation: N/A PLACENTA INFORMATION BABY A Placenta Delivery Time : 05/20/2019 08:25 Placenta Method of Delivery: Manual Removal Placenta Status: Delivered SCORES BABY A Heart Rate 1 min: >100 bpm Resp Effort 1 min: Good Cry Reflex Irritability 1 min: Cough/Sneeze/Pulls Away Muscle Tone 1 min: Active Motion Color 1 min: Body [place], Extremit Blue Resuscitation Effort 1 min: Tactile Stimulation SCORE 1 MIN: 9 Heart Rate 5 min: >100 bpm Resp Effort 5 min: Good Cry Reflex Irritability 5 min: Cough/Sneeze/Pulls Away Muscle Tone 5 min: Active Motion Color 5 min: Body [place], Extremit Blue Resuscitation Effort 5 min: Tactile Stimulation SCORE 5 MIN: 9 INFORMATION BABY A Gestational Age at Delivery: 37.0 Gestational Status: Early Term- 37- 38.6 Weeks Infant Outcome : Liveborn, with signs of life Infant Condition : Stable Sex: Female IDENTIFICATION/MEDS BABY A ID Band Number: [id number] ID Band Location: Right Leg; Left Arm Sensor Applied: Yes Sensor Number: [id number] Sensor Location : Cord Clamp Vitamin K Given : Not Given Erythromycin Given: Not Given WEIGHT/LENGTH BABY A Birthweight (gm): 3295 Weight (lb): 7 Weight (oz): 4 Infant Length (in): 20.00 Length (cm): 50.80 CORD INFORMATION BABY A No. Cord Vessels: 3 Nuchal Cord : N/A Cord Blood Taken: Yes Infant Suction: Mouth; Nose ASSESSMENT BABY A Complications: None Physical Findings at Delivery: Within Normal Limits Infant Respirations: Appears Normal Transitional Care Manager/ALS Called : No Care By: BLADIMIR DELONG Transferred To: Remains with Mother
== END 2019-05-23 12:00 | disposition home or self-care (01) | DRG 785 ==
LOC: PP1 14:22 → L-D 05-20 06:35 → MS1 05-20 12:55 → PP1 05-22 14:42
PROVIDERS: ADMIT Specialist; ATTEND Specialist
PROC: 0UB70ZZ Excision of Bilateral Fallopian Tubes, Open Approach (ICD-10-PCS; 2019-05-20)
PROC: 10D00Z1 Extraction of Products of Conception, Low, Open Approach (ICD-10-PCS; principal; 2019-05-20 07:15)
DX: O14.94 Unspecified pre-eclampsia, complicating childbirth (principal); O34.211 Maternal care for low transverse scar from previous cesarean delivery; O99.214 Obesity complicating childbirth; Z3A.37 37 weeks gestation of pregnancy; Z37.0 Single live birth; Z30.2 Encounter for sterilization
CPT/HCPCS: 85025; 86592; 86850; 86900; 86901; 88302; 99464; J0690; J1170; J1200; J1650; J1885; J2274; J2405; J2590; J2765; J7120